=== PATIENT | male | born 1995 | race African-American/Black ===

== ENCOUNTER 2019-07-09 12:07 | Emergency (ER) | payer OTHER ==
[2019-07-09 12:15] VITALS: BP 138/75
[2019-07-09] MEDS ORDERED: TETRACAINE HCL 0.5% OPH SOLN 4 ML OU ONE (12:26)
--- NOTE | 2019-07-09 12:31 | ER Document Report ---
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 He reports 3 days ago he was seen at [facility] and treated for bacterial conjunctivitis in the left eye. He reports he started using erythromycin ointment. He reports then the irritation jumped to his right eye. He reports he wakes up in the mornings has discharge and matting to the eyes. He also reports that a female he had sex with contacted him and told him that she had gonorrhea and chlamydia. He denies symptoms. Denies penile discharge. Denies testicular pain. Denies abdominal pain. Reports he is voiding without problems denies fever nausea vomiting diarrhea. Associated Symptoms: None Exacerbated by: Denies Relieved by: Denies Similar symptoms previously: Yes Recently seen / treated by doctor: Yes Past Medical History - General Information source: Patient - Social History Smoking Status: Unknown if Ever Smoked Cigarette use (# per day): No Frequency of alcohol use: Occasional Drug Abuse: None Occupation: [employer] [place] Lives with: Friend Family History: None Patient has suicidal ideation: No Patient has homicidal ideation: No - Medical History Medical History: Negative Surgical Hx: Negative Vertical Provider Document - CONSTITUTIONAL Agree With Documented VS: Yes Exam Limitations: No Limitations General Appearance: No Apparent Distress - HEENT HEENT: Conjuctival Injection - bilateral - NECK Neck: Supple - RESPIRATORY Respiratory: No Respiratory Distress - GI/ABDOMEN Gastrointestinal: Abdomen Soft - MUSCULOSKELETAL/EXTREMETIES Musculoskeletal/Extremeties: MAEW, FROM - NEURO Level of Consciousness: Awake, Alert, Appropriate Motor/Sensory: No Motor Deficit - DERM Integumentary: Warm, Dry Course - Re-evaluation Re-evalutation: 07/09/19 15:04 Laboratory 07/09/19 12:30 Chlamydia DNA (PCR) NOT DETECTED N.gonorrhoeae DNA (PCR) NOT DETECTED STD cultures negative. Patient was contacted and informed of results. He was also reminded to follow-up with his BAS for recheck of his eyes. He verbalized understanding to all instructions. - Vital Signs Vital signs: Temp Pulse Resp BP Pulse Ox 98.7 F 64 16 138/75 H 96 07/09/19 12:14 07/09/19 12:14 07/09/19 12:14 07/09/19 12:14 07/09/19 12:14 Procedures - Eye Procedure Bilateral Eye Irrigated w/ Saline (ccs): 30 Alcaine Drops Administered: Yes - tetracaine Fluorescein applied: Bilateral Antibiotic Oinment/Drps Admin: Both eyes - polytrim Slit lamp used: No Notes: 07/09/19 15:04 Tetracaine applied to both eyes. Fluorescein pain applied no abrasions noted. Patient was instructed to use Polytrim stop the erythromycin. He was also instructed to follow-up with his BAS and ophthalmology for recheck. He verbalized understanding to all information. Discharge - Discharge Clinical Impression: Possible exposure to STD, Bacterial conjunctivitis of both eyes Condition: Stable Disposition: HOME, SELF-CARE Instructions: Chlamydia (OM), Conjunctivitis (OM), Eyedrop Use (OM), Gonorrhea ([facility]), [facility] [place] Additional Instructions: *You have been evaluated for possible STD exposure, bacterial conjunctivitis *You have decided to be discharged and come back should you need STD treatment. You will be contacted within the next 3 to 4 hours with your results. *Follow up with your BAS or the health department for recheck within one week *Avoid sexual intercourse until follow up *Stop erythromycin ointment. Apply Polytrim eyedrops 4 times a day for 5 days, good handwashing change your pillow slips, avoid touching your eyes *Return to the emergency department for eye pain worsening condition, concerns, needs Monitor your blood pressure. Your blood pressure was elevated today. This may be because you were anxious, in pain or because you need medication. It is important to follow up with your primary care provider for full evaluation. Forms: Elevated Blood Pressure
[2019-07-09] MEDS ORDERED: POLYMYXIN B SULFATE/TMP OPH SOLN (10 ML/ER DISP) OU PRN (12:58)
[2019-07-09 14:10] LABS: CHLAM PCR NOT DETECTED (NOT DETECT)
== END 2019-07-09 13:15 | disposition home or self-care (01) ==
LOC: ER 12:07
DX: Z20.2 Contact with and (suspected) exposure to infections with a predominantly sexual mode of transmission (principal); H10.9 Unspecified conjunctivitis; B96.89 Other specified bacterial agents as the cause of diseases classified elsewhere
CPT/HCPCS: 99283; 87491; 87591; J3490 ×2

== ENCOUNTER 2019-11-03 22:17 | Emergency (ER) | payer BC, OTHER ==
[2019-11-03 22:30] VITALS: BP 136/80
--- NOTE | 2019-11-03 23:17 | ER Document Report ---
HPI - HPI Patient complains to provider of: insect bite Time Seen by Provider: 11/03/19 22:57 Pain Level: 3 Notes: Patient is a 24 y/o male and presents for a possible insect bite. 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 He noted his usual heat rash to his bitaleral arms. Before bed, he sprayed bug spray all over and slept under a tarp in the [place]. When he woke up this morning he noticed a black spot to his right antecubital fossa. He reports burning to the area but denies any itching. Patient denies fever, chills, nausea and vomiting. - ROS Systems Reviewed and Negative: Yes All other systems reviewed and negative - REPRODUCTIVE Reproductive: DENIES: : - DERM Notes: insect bite to right arm Past Medical History - Social History Smoking Status: Never Smoker Frequency of alcohol use: Occasional Family History: None Vertical Provider Document - CONSTITUTIONAL Notes: VITAL SIGNS: Within normal limits. GENERAL: No acute distress, non-toxic appearance. HEAD: Normal with no signs of head trauma. EYES: PERRLA, EOMI, conjunctiva normal, no discharge. EARS: Hearing grossly intact. NOSE: Normal. VASCULAR: No Edema. Peripheral pulses normal and equal in all extremities. MUSCULOSKELETAL: Good range of motion of all major joints. Extremities without clubbing, cyanosis or edema. NEUROLOGICAL: Alert and oriented x 3. No focal sensory or strength deficits. Speech normal. Follows commands appropriately. PSYCHIATRIC: Normal Affect, judgement and mood. SKIN: 2.5cm x 2.5cm ecchymotic lesion to the right antecubital fossa with surrounding erythema with induration 4cm x 6cm in size. Course - Re-evaluation Re-evalutation: 11/03/19 23:[address] Fraser, he came and saw the patient. He recommends ordering a CBC as well as titers for Lyme, [place] Spotted Fever and Ehrlichia. 11/03/19 23:50 Dr. Fraser recommends sending the patient home with doxycycline 100mg BID and levaquin 500mg QD for 7 days as protective measure since all the titers will be send outs and won't result for a couple of days. - Vital Signs Vital signs: Temp Pulse Resp BP Pulse Ox 98.2 F 71 16 136/80 H 98 11/03/19 22:29 11/03/19 22:29 11/03/19 22:29 11/03/19 22:29 11/03/19 22:29 Discharge - Discharge Condition: Stable Disposition: HOME, SELF-CARE
--- NOTE | 2019-11-03 23:59 | ER Document Report ---
ED Medical Screen (RME) - General Chief Complaint: Insect Bite Stated Complaint: INSECT BITE Time Seen by Provider: 11/03/19 22:57 Notes: Patient is a 24 y/o male and presents for a possible insect bite. 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 He noted his usual heat rash to his bitaleral arms. Before bed, he sprayed bug spray all over and slept under a tarp in the [place]. When he woke up this morning he noticed a black spot to his right antecubital fossa. He reports burning to the area but denies any itching. Patient denies fever, chills, nausea and vomiting. SKIN: 2.5cm x 2.5cm ecchymotic lesion to the right antecubital fossa with surrounding erythema with induration 4cm x 6cm in size. Re-evalutation: 11/03/19 23:[address] Fraser, he came and saw the patient. He recommends ordering a CBC as well as titers for Lyme, [place] Spotted Fever and Ehrlichia. 11/03/19 23:50 Dr. Fraser recommends sending the patient home with doxycycline 100mg BID and levaquin 500mg QD for 7 days as protective measure since all the titers will be send outs and won't result for a couple of days. I have greeted and performed a rapid initial assessment of this patient. A comprehensive ED assessment and evaluation of the patient, analysis of test results and completion of medical decision making process will be conducted by an additional ED providers. - Related Data Allergies/Adverse Reactions: No Known Allergies Allergy (Unverified 07/09/19 13:09) Past Medical History - Social History Frequency of alcohol use: Occasional Physical Exam - Vital signs Vitals: Temp Pulse Resp BP Pulse Ox 98.2 F 71 16 136/80 H 98 11/03/19 22:29 11/03/19 22:29 11/03/19 22:29 11/03/19 22:29 11/03/19 22:29 Course - Vital Signs Vital signs: Temp Pulse Resp BP Pulse Ox 98.2 F 71 16 136/80 H 98 11/03/19 22:29 11/03/19 22:29 11/03/19 22:29 11/03/19 22:29 11/03/19 22:29 Doctor's Discharge - Discharge Condition: Stable Disposition: HOME, SELF-CARE
[2019-11-04 00:42] LABS: ABSOLUTE BASOPHILS # (AUTO) 0.1 10^3/uL (0.0-0.2); ABSOLUTE EOSINOPHILS # (AUTO) 0.2 10^3/uL (0.0-0.6); ABSOLUTE LYMPHOCYTES (AUTO) 1.9 10^3/uL (0.5-4.7); ABSOLUTE MONOCYTES (AUTO) 0.6 10^3/uL (0.1-1.4); BASOPHILS % (AUTO) 1.1 % (0-2); EOSINOPHILS % (AUTO) 3.7 % (0-6); HEMATOCRIT 43.4 % (37.9-51.0); HEMOGLOBIN 14.3 g/dL (13.5-17.0); LYMPHOCYTES % (AUTO) 32.6 % (13-45); MEAN CORPUSCULAR HEMOGLOBIN 26.6 pg (27.0-33.4); MEAN CORPUSCULAR VOLUME 81 fl (80-97); MONOCYTES % (AUTO) 10.1 % (3-13); PLATELET COUNT 235 10^3/uL (150-450); RED BLOOD COUNT 5.38 10^6/uL (4.35-5.55); RED CELL DISTRIBUTION WIDTH 12.9 % (11.5-14.0); SEGMENTED NEUTROPHILS % (AUTO) 52.5 % (42-78); TOTAL CELLS COUNTED % (AUTO) 100 %; WHITE BLOOD COUNT 5.7 10^3/uL (4.0-10.5)
== END 2019-11-04 01:00 | disposition home or self-care (01) ==
LOC: ER 22:17
DX: S50.361A Insect bite (nonvenomous) of right elbow, initial encounter (principal); W57.XXXA Bitten or stung by nonvenomous insect and other nonvenomous arthropods, initial encounter
CPT/HCPCS: 36415; 81291; 82784; 85025; 86757; 99283